=== PATIENT | male | born 1990 | race Caucasian/White ===

== ENCOUNTER 2018-09-11 22:58 | Emergency (ER) | payer SELFPAY ==
[2018-09-11 23:02] VITALS: RESP 16; TEMP 97.2
[2018-09-11] MEDS ORDERED: Tdap Vaccine 0.5 ml Vial (10-64 yrs) IM ONE (23:24)
[2018-09-11] MEDS ORDERED: Sodium Chloride 0.9% 50 ML IV ONE (23:39)
[2018-09-11] MEDS ORDERED: Iodixanol 320 MG/ML 100 ML BOTTLE IV ONE (23:40)
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
[2018-09-11 23:48] LABS: EOS # 1.2 K/uL (0.0-0.7); EOS % 16.7 % (0.0-4.0); HEMOGLOBIN 15.6 g/dL (12.0-18.0); LYMPH # 3.5 K/uL (1.0-4.3); MEAN CELL VOLUME 87.8 fl (80.0-94.0); MEAN PLATELET VOLUME 7.6 fl (7.2-11.7); NEUT # 2.4 K/uL (1.8-7.0); NEUT % 33.3 % (50.0-75.0); RBC 5.36 Mil/uL (4.40-5.90); WHITE BLOOD COUNT 7.1 K/uL (4.8-10.8)
[2018-09-11 23:59] LABS: ALB/GLOB RATIO 1.5 (1.0-2.1); ALBUMIN 4.9 g/dL (3.5-5.0); ALT/SGPT 134 U/L (21-72); AST/SGOT 81 U/L (17-59); BLOOD UREA NITROGEN 12 mg/dl (9-20); CALCIUM 9.2 mg/dL (8.4-10.2); GFR NON-AFRICAN AMERICAN > 60
[2018-09-12] MEDS ORDERED: Tdap Vaccine 0.5 ml Vial (10-64 yrs) IM ONE (05:43)
[2018-09-12 06:02] VITALS: BP 137/80; PULSE 87; O2SAT 99
--- NOTE | 2018-09-12 08:32 | RAD ---
Date of service: 09/11/2018 PROCEDURE: Bilateral Knee Radiographs. HISTORY: knee pain COMPARISON: No prior studies for comparison. Two views of the right knee and left knee were performed. FINDINGS: BONES: Right Knee: Normal. No fracture. Left Knee: Normal. No fracture. JOINTS: Right Knee: Normal. No osteoarthritis. Left knee: Normal. No osteoarthritis. SOFT TISSUES: Right Knee: Normal. Left Knee: Normal. JOINT EFFUSION: Right Knee: None. Left Knee: None. OTHER FINDINGS: No loose bodies are identified in either knee. No tibial plateau depression or erosion is noted. IMPRESSION: No appreciable fracture. No significant joint space narrowing or joint effusion identified. Both patella appear normal location.
--- NOTE | 2018-09-12 11:23 | CT ---
Date of service: 09/11/2018 PROCEDURE: CT HEAD WITHOUT CONTRAST. HISTORY: fall/intoxicated COMPARISON: None available. TECHNIQUE: Axial computed tomography images were obtained through the head/brain without intravenous contrast. Radiation dose: Total exam DLP = 852.68 mGy-cm. This CT exam was performed using one or more of the following dose reduction techniques: Automated exposure control, adjustment of the mA and/or kV according to patient size, and/or use of iterative reconstruction technique. FINDINGS: HEMORRHAGE: No intracranial hemorrhage. BRAIN: No mass effect or edema. No atrophy or chronic microvascular ischemic changes. VENTRICLES: Unremarkable. No hydrocephalus. CALVARIUM: Unremarkable. PARANASAL SINUSES: Unremarkable as visualized. No significant inflammatory changes. MASTOID AIR CELLS: Unremarkable as visualized. No inflammatory changes. OTHER FINDINGS: None. IMPRESSION: Unremarkable CT scan of the brain without contrast. No evidence of intracranial hemorrhage or extra-axial collection. Nonspecific mild chronic sinusitis. This agrees with preliminary report.
--- NOTE | 2018-09-12 14:59 | CT ---
Date of service: 09/11/2018 PROCEDURE: CT Chest, Abdomen and Pelvis with intravenous contrast HISTORY: puncture wound back COMPARISON: None available. TECHNIQUE: IV dose administered: 95 milliliters Radiation dose: Total exam DLP = 1540.28 mGy-cm. This CT exam was performed using one or more of the following dose reduction techniques: Automated exposure control, adjustment of the mA and/or kV according to patient size, and/or use of iterative reconstruction technique. FINDINGS: CT CHEST WITH CONTRAST: LUNGS: Minor dependent atelectasis is seen posteriorly with some mild additional additional patchy interstitial change elsewhere but without focal infiltrate. There is a calcified granuloma seen in the left lower lobe. MEDIASTINUM: New mediastinal hilar adenopathy is seen. No axillary adenopathy is seen. Thoracic inlet is unremarkable. No appreciable filling defects are seen in the pulmonary arteries. Aorta is normal in size. No pericardial effusion or pleural effusion is seen. LYMPH NODES: Unremarkable. PLEURA: Unremarkable. No pneumothorax. No pleural fluid. BONES: Unremarkable. OTHER FINDINGS: None. CT ABDOMEN AND PELVIS: LIVER: Liver is mildly fatty infiltrated without evidence of focal mass or intrahepatic ductal dilatation. GALLBLADDER AND BILE DUCTS: Unremarkable. PANCREAS: Unremarkable. No gross lesion or ductal dilatation. SPLEEN: Unremarkable. ADRENALS: Unremarkable. No mass. KIDNEYS AND URETERS: No renal masses or perinephric changes are seen. No hydronephrosis is noted. There is a double collecting system on the left with the ureters emerging or fusing in the lower pelvis. VASCULATURE: No aortic atherosclerotic calcification or mural plaque present. Unremarkable. No aortic aneurysm. BOWEL: Unremarkable. No obstruction. No gross mural thickening. APPENDIX: Normal appendix. PERITONEUM: Unremarkable. No free fluid. No free air. LYMPH NODES: Unremarkable. No enlarged lymph nodes. BLADDER: Unremarkable. REPRODUCTIVE: Unremarkable. BONES: No acute fracture. OTHER FINDINGS: Stomach is mildly distended, nonspecific. No free intraperitoneal air is seen. No ascites is seen. IMPRESSION: No CT scan evidence of pulmonary embolism. Mild nonspecific interstitial change and dependent atelectasis. Mild pneumonitis is not excluded. No focal segmental alveolar infiltrate or adenopathy is seen. Mild fatty infiltration of the liver. Mild distended stomach without wall thickening. No appreciable bowel obstruction, colitis or appendicitis. No ascites.
--- NOTE | 2018-09-12 16:55 | CT ---
Date of service: 09/11/2018 PROCEDURE: CT Cervical Spine without contrast HISTORY: neck injury COMPARISON: None available. TECHNIQUE: Axial computed tomography images were obtained of the cervical spine without the use of intravenous contrast. Coronal and sagittal reformatted images were created and reviewed. Radiation dose: Total exam DLP = 414.48 mGy-cm. This CT exam was performed using one or more of the following dose reduction techniques: Automated exposure control, adjustment of the mA and/or kV according to patient size, and/or use of iterative reconstruction technique. FINDINGS: VERTEBRAE: No fracture. Normal alignment. No destructive bony lesion. DISCS/SPINAL CANAL/NEURAL FORAMINA: No significant central canal or neural foraminal stenosis. Discs heights are grossly preserved. PARASPINAL SOFT TISSUES: Unremarkable. OTHER FINDINGS: Lung apices are unremarkable. Superior mediastinum is within normal limits and the thoracic inlet is unremarkable. No jumped facets are identified. C1-C2 articulation is within normal limits. IMPRESSION: Unremarkable CT scan of the cervical spine. No evidence of fracture malalignment. Study is limited by motion and overlying soft tissue. This agrees with preliminary reading.
== END 2018-09-12 06:55 | disposition home or self-care (01) ==
LOC: H.ER 22:58
DX: F10.129 Alcohol abuse with intoxication, unspecified (principal); S80.211A Abrasion, right knee, initial encounter; W19.XXXA Unspecified fall, initial encounter; J32.9 Chronic sinusitis, unspecified
CPT/HCPCS: 70450; 71260; 72125; 73562; 74177; 80053; 82948; 85025; 90471; 90715; 99284; G0480; Q9967